=== PATIENT | male | born 2000 | race Two or more races ===

== ENCOUNTER 2022-09-05 09:15 | Emergency (ER) | payer OTHER ==
[~2022-09-05] VITALS: Ht 170.2 cm; Wt 50.8 kg
[2022-09-05] MEDS ORDERED: OSEL75CA PO (11:12)
== END 2022-09-05 11:22 | disposition home or self-care (01) ==
LOC: ER 09:15
DX: J06.9 Acute upper respiratory infection, unspecified (principal); Z20.822 Contact with and (suspected) exposure to COVID-19